=== PATIENT | male | born 1990 | race Caucasian/White ===

== ENCOUNTER 2017-05-22 19:35 | Emergency (ER) | payer OTHER ==
[~2017-05-22] VITALS: Ht 190.5 cm; Wt 99.8 kg
[~2017-05-22 19:35] MED LIST: AMOX500 PO; HYDACE5 PO; IBUP200 PO; IBUP800 PO; PENVK500 PO; RXAMOX500 PO
[2017-05-22] MEDS ORDERED: Vibramycin100 MG PO (20:06)
== END 2017-05-22 20:27 | disposition home or self-care (01) ==
LOC: ER 19:35
DX: L03.011 Cellulitis of right finger (principal); F17.200 Nicotine dependence, unspecified, uncomplicated; Z88.2 Allergy status to sulfonamides; Z79.2 Long term (current) use of antibiotics
CPT/HCPCS: 10060; 99283